=== PATIENT | female | born 1980 | race Caucasian/White ===

== ENCOUNTER 2021-05-01 09:21 | Inpatient (IN) ==
[2021-05-01] MEDS ORDERED: Isovue-370 500 ML BOTTLE IVP ONE (10:19)
[2021-05-01] MEDS ORDERED: Cefepime HCl 2,000 MG in D5% in Water (Mini-Bag+) 100 ML IVPB STA (10:20)
[2021-05-01 10:58] LABS: Hematocrit 32.5 % (35.3-44.9); Hemoglobin 10.5 g/dL (11.5-15.4); Mean Corpuscular HGB Conc 32.3 g/dL (31.6-35.5); Mean Corpuscular Hemoglobin 28.8 pg (28.0-33.3); Mean Corpuscular Volume 89.3 fL (83.0-100.0); Mean Platelet Volume 9.2 fL (9.4-12.4); Platelet Count 206 K/mcL (140-400); Red Blood Count 3.64 M/mcL (3.82-4.97); Red Cell Distribution Width 13.5 % (11.5-14.5); White Blood Count 4.6 K/mcL (4.3-11.1)
[2021-05-01] MEDS ORDERED: Vancomycin 1,500 MG/265 ML IV.SOLN IVPB ONE (11:00)
[2021-05-01 11:07] LABS: Bilirubin,Urine Negative (Negative); Blood,Urine Negative (Negative); Clarity,Urine Clear (Clear); Color,Urine Light-Yellow (Yellow); Glucose,Urine (UA) Normal (Normal); Ketones,Urine Negative (Negative); Leukocyte Esterase,Urine Negative (Negative); Nitrite,Urine Negative (Negative); Protein,Urine Negative (Neg-Trace); Specific Gravity,Urine 1.018 (1.010-1.025); Urobilinogen,Urine Normal (Normal)
[2021-05-01 11:15] LABS: BUN/Creatinine Ratio 20 (6-26); Blood Urea Nitrogen 10 mg/dL (6-20); Calcium 8.7 mg/dL (8.6-10.3); Carbon Dioxide 26 mEq/L (23-29); Chloride 105 mEq/L (98-107); Glucose 93 mg/dL (70-105); Osmolality,Calculated 277 (280-300); Sodium 134 mEq/L (136-145); eGFR For African Americans > 60 (> 60); eGFR For Non-African Americans > 60 (> 60)
[2021-05-01] MEDS ORDERED: *HR* FentaNYL (PF) 100 MCG/2 ML VIAL IVP STA (12:49)
[2021-05-01] MEDS ORDERED: Ondansetron 4 MG/2 ML VIAL IVP ONE (12:50)
[2021-05-01] MEDS ORDERED: Naloxone 0.4 MG/ML INJ IVP PRN (13:17)
[2021-05-01] MEDS ORDERED: Acetaminophen 325 MG TABLET PO PRN (13:17)
[2021-05-01] MEDS ORDERED: Ondansetron 4 MG/2 ML VIAL IVP PRN (13:17)
[2021-05-01] MEDS ORDERED: *HR* OxyCODONE Immed Rel 5 MG TABLET PO PRN ×2 (13:20→13:21)
[2021-05-01] MEDS: *HR* OxyCODONE Immed Rel 5 MG TABLET PO PRN ×2 (16:53→21:02)
[2021-05-01] MEDS: Cefepime HCl 2,000 MG in 0.9 % Sodium Chloride Mini Bag 100 ML IVPB SCH (19:40)
[2021-05-01] MEDS: Vancomycin 1,500 MG/265 ML IV.SOLN IVPB SCH (23:20)
[2021-05-02 00:54] LABS: Hematocrit 33.2 % (35.3-44.9); Hemoglobin 10.4 g/dL (11.5-15.4); Mean Corpuscular HGB Conc 31.3 g/dL (31.6-35.5); Mean Corpuscular Volume 92.5 fL (83.0-100.0); Mean Platelet Volume 9.6 fL (9.4-12.4); Platelet Count 216 K/mcL (140-400); Red Blood Count 3.59 M/mcL (3.82-4.97); Red Cell Distribution Width 13.8 % (11.5-14.5)
[2021-05-02 01:00] LABS: White Blood Count 7.2 K/mcL (4.3-11.1)
[2021-05-02 01:12] LABS: BUN/Creatinine Ratio 15 (6-26); Blood Urea Nitrogen 11 mg/dL (6-20); Calcium 8.5 mg/dL (8.6-10.3); Carbon Dioxide 23 mEq/L (23-29); Chloride 103 mEq/L (98-107); Glucose 108 mg/dL (70-105); Osmolality,Calculated 274 (280-300); Potassium 4.2 mEq/L (3.5-5.1); Sodium 132 mEq/L (136-145); eGFR For African Americans > 60 (> 60); eGFR For Non-African Americans > 60 (> 60)
[2021-05-02] MEDS: *HR* OxyCODONE Immed Rel 5 MG TABLET PO PRN ×2 (02:41→22:51)
[2021-05-02] MEDS: Cefepime HCl 2,000 MG in 0.9 % Sodium Chloride Mini Bag 100 ML IVPB SCH ×2 (03:46→13:20)
[2021-05-02] MEDS: *HR* Enoxaparin 40 MG/0.4 ML SYRINGE SQ SCH (05:59)
[2021-05-02] MEDS ORDERED: *HR* FentaNYL (PF) 100 MCG/2 ML VIAL IVP PRN (07:15)
[2021-05-02] MEDS ORDERED: Bupivacaine/EPI 1:200k 0.25% 50 ML VIAL ONE (07:30)
[2021-05-02] MEDS ORDERED: Ipratropium/Albuterol Neb 3 ML IH ONE (07:37)
[2021-05-02] MEDS ORDERED: Acetaminophen IV 1,000 MG/100 ML BAG IVPB ONE (07:38)
[2021-05-02] MEDS ORDERED: Lidocaine/EPI 1:100k 1% 30 ML VIAL ONE (07:40)
[2021-05-02] MEDS ORDERED: *HR* Propofol 200 MG/20 ML VIAL IVP ONE ×2 (07:42→07:43)
[2021-05-02] MEDS ORDERED: *HR* FentaNYL (PF) 100 MCG/2 ML VIAL ONE ×2 (07:43→08:12)
[2021-05-02] MEDS ORDERED: *HR* Midazolam HCl 2 MG/2 ML VIAL ONE (07:43)
[2021-05-02] MEDS ORDERED: dexmedeTOMIDine in 0.9 % NaCL 80 MCG/20 ML MLS ONE (07:50)
[2021-05-02] MEDS: Ringers Solution, Lactated 1,000 ML IVC SCH (07:54)
[2021-05-02] MEDS ORDERED: Ondansetron 4 MG/2 ML VIAL ONE ×2 (08:30→09:04)
[2021-05-02] MEDS ORDERED: Ketorolac 30 MG/ML VIAL IVP ONE (09:43)
[2021-05-02] MEDS: *HR* HYDROmorphone PF 0.5 MG/0.5 ML SYRINGE IVP PRN ×4 (09:43→10:16)
[2021-05-02] MEDS: Vancomycin 1,500 MG/265 ML IV.SOLN IVPB SCH (13:21)
[2021-05-02] MEDS: *HR* OxyCODONE Immed Rel 15 MG TABLET PO PRN ×2 (13:37→18:42)
[2021-05-03 00:41] VITALS: O2SAT 98
[2021-05-03] MEDS: Vancomycin 1,500 MG/265 ML IV.SOLN IVPB SCH (01:52)
[2021-05-03] MEDS: *HR* Enoxaparin 40 MG/0.4 ML SYRINGE SQ SCH (05:59)
[2021-05-03] MEDS: *HR* OxyCODONE Immed Rel 5 MG TABLET PO PRN (05:59)
[2021-05-03] MEDS: Ringers Solution, Lactated 1,000 ML IVC SCH (07:13)
[2021-05-03 07:45] VITALS: BP 124/62; PULSE 69; TEMP 98.1
== END 2021-05-03 10:56 | disposition home or self-care (01) | DRG 364 ==
LOC: EMEROOARM 09:21 → 3BNU 09:21 → SUATTDRO 13:41 → 3BNU 15:15
PROVIDERS: ADMIT Internal Medicine; ATTEND Internal Medicine

== ENCOUNTER 2022-02-01 11:58 | Inpatient (IN) ==
[2022-02-01] MEDS ORDERED: Iopamidol - 370 500 ML MLS IVP ONE (13:00)
[2022-02-01 13:50] LABS: Basophils % 0.2 %; Eosinophils % 0.8 %; Hemoglobin 9.9 g/dL (11.5-15.4); Immature Granulocytes % 0.6 % (0-4); Lymphocytes # 0.3 K/mcL (0.6-4.6); Lymphocytes % 6.6 %; Mean Corpuscular HGB Conc 34.1 g/dL (31.6-35.5); Mean Corpuscular Hemoglobin 28.5 pg (28.0-33.3); Mean Corpuscular Volume 83.6 fL (83.0-100.0); Monocytes # 0.3 K/mcL (0.0-1.3); Neutrophils # 4.3 K/mcL (1.6-8.9); Platelet Count 182 K/mcL (140-400); Red Blood Count 3.47 M/mcL (3.82-4.97); Red Cell Distribution Width 15.6 % (11.5-14.5); Segmented Neutrophils % 85.8 %
[2022-02-01 13:52] LABS: VBG PH 7.26 pH Units (7.32-7.42)
[2022-02-01 14:03] LABS: INR 1.3; Prothrombin Time 14.5 Seconds (9.4-12.1)
[2022-02-01 14:14] LABS: Alanine Aminotransferase 7 Units/L (7-52); Albumin 2.7 g/dL (3.5-5.7); Albumin/Globulin Ratio 0.6 (1.1-2.2); Alkaline Phosphatase 70 Units/L (34-104); Aspartate Amino Transferase 11 Units/L (13-39); BUN/Creatinine Ratio 17 (6-26); Bilirubin,Total 0.5 mg/dL (0.3-1.0); Blood Urea Nitrogen 105 mg/dL (6-20); Carbon Dioxide 15 mEq/L (23-29); Chloride 104 mEq/L (98-107); Creatine Kinase 38 Units/L (30-223); Globulin 4.4 g/dL (2.4-3.5); Glucose 99 mg/dL (70-105); Magnesium 1.7 mg/dL (1.6-2.6); Osmolality,Calculated 309 (280-300); Phosphorous 6.1 mg/dL (2.7-4.5); Potassium 3.1 mEq/L (3.5-5.1); Sodium 133 mEq/L (136-145); Total Protein 7.1 g/dL (6.4-8.9); Troponin I < 0.03 ng/mL (< 0.04); Uric Acid 12.6 mg/dL (2.3-7.6)
[2022-02-01] MEDS ORDERED: cefTRIAXone 1,000 MG in 0.9 % Sodium Chloride 10 ML IVP ONE (16:02)
[2022-02-01] MEDS ORDERED: 0.9 % Sodium Chloride 250 ML IVC PRN (16:06)
[2022-02-01] MEDS ORDERED: *HR* Heparin 5,000 UNIT/ML VIAL IVP ONE (16:19)
[2022-02-01] MEDS ORDERED: *HR* Heparin 10,000 UNIT/10 ML VIAL IV PRN (16:37)
[2022-02-01] MEDS ORDERED: 0.9 % Sodium Chloride 2,000 ML PRIME SCH (16:45)
[2022-02-01] MEDS ORDERED: Naloxone 0.4 MG/ML INJ IVP PRN (16:50)
[2022-02-01] MEDS ORDERED: Vancomycin 0 MG in 0.9 % Sodium Chloride 250 ML IVPB SCH (17:00)
[2022-02-01] MEDS ORDERED: Vancomycin 1,250 MG/262.5 ML IV.SOLN IVPB ONE (17:00)
[2022-02-01] MEDS ORDERED: Cefepime HCl 2,000 MG in 0.9 % Sodium Chloride Mini Bag 100 ML IVPB SCH (18:00)
[2022-02-01] MEDS: *HR* HYDROcodone/Acet 5/325 mg TABLET PO PRN (22:00)
[2022-02-01] MEDS: Heparin 25,000UNIT/250ML 1/2NS 25,000 UNIT/250 ML IV.SOLN IVC SCH (22:03)
[2022-02-01] MEDS: Cefepime HCl 2,000 MG in 0.9 % Sodium Chloride Mini Bag 100 ML IVPB SCH (22:08)
[2022-02-01] MEDS: Acetaminophen 325 MG TABLET PO PRN (22:44)
[2022-02-02 05:21] LABS: Basophils % 0.5 %; Eosinophils # 0.1 K/mcL (0.0-0.6); Eosinophils % 2.2 %; Hematocrit 25.2 % (35.3-44.9); Hemoglobin 8.6 g/dL (11.5-15.4); Immature Granulocytes % 1.2 % (0-4); Lymphocytes # 0.7 K/mcL (0.6-4.6); Lymphocytes % 17.9 %; Mean Corpuscular HGB Conc 34.1 g/dL (31.6-35.5); Mean Corpuscular Hemoglobin 28.5 pg (28.0-33.3); Mean Corpuscular Volume 83.4 fL (83.0-100.0); Monocytes # 0.5 K/mcL (0.0-1.3); Monocytes % 11.8 %; Neutrophils # 2.7 K/mcL (1.6-8.9); Platelet Count 164 K/mcL (140-400); Red Blood Count 3.02 M/mcL (3.82-4.97); Red Cell Distribution Width 15.7 % (11.5-14.5); Segmented Neutrophils % 66.4 %; White Blood Count 4.1 K/mcL (4.3-11.1)
[2022-02-02] MEDS: *HR* Heparin 5,000 UNIT/ML VIAL IVP PRN ×2 (06:13→12:43)
[2022-02-02] MEDS: *HR* HYDROcodone/Acet 5/325 mg TABLET PO PRN (09:46)
[2022-02-02] MEDS: Cefepime HCl 2,000 MG in 0.9 % Sodium Chloride Mini Bag 100 ML IVPB SCH (10:05)
[2022-02-02] MEDS: Cefepime HCl 2,000 MG in 0.9 % Sodium Chloride 10 ML IVP SCH ×2 (10:09→22:24)
[2022-02-02] MEDS: *HR* OxyCODONE Immed Rel 5 MG TABLET PO PRN ×2 (12:14→19:44)
[2022-02-02] MEDS: Heparin 25,000UNIT/250ML 1/2NS 25,000 UNIT/250 ML IV.SOLN IVC SCH (15:55)
[2022-02-02 16:11] LABS: Source,Synovial Fluid Left Knee
[2022-02-02 18:49] LABS: Source,Synovial Fluid Sternoclavicular Joi
[2022-02-02 18:52] LABS: A.calcoaceticus-baumannii cplx Not Detected (Not Detect); Bacteroides fragilis by PCR Not Detected (Not Detect); Candida albicans by PCR Not Detected (Not Detect); Candida auris by PCR Not Detected (Not Detect); Candida glabrata by PCR Not Detected (Not Detect); Candida krusei by PCR Not Detected (Not Detect); Candida parapsilosis by PCR Not Detected (Not Detect); Candida tropicalis by PCR Not Detected (Not Detect); Crypto. neoformans/gattii PCR Not Detected (Not Detect); Enterobacter cloacae Cmplx PCR Not Detected (Not Detect); Enterobacterales by PCR Not Detected (Not Detect); Enterococcus faecalis by PCR Not Detected (Not Detect); Enterococcus faecium by PCR Not Detected (Not Detect); Escherichia coli by PCR Not Detected (Not Detect); Klebs. pneumoniae group by PCR Not Detected (Not Detect); Klebsiella aerogenes by PCR Not Detected (Not Detect); Klebsiella oxytoca by PCR Not Detected (Not Detect); Proteus by PCR Not Detected (Not Detect); Pseudomonas aeruginosa by PCR Not Detected (Not Detect); Salmonella species by PCR Not Detected (Not Detect); Serratia marcescens by PCR Not Detected (Not Detect); Staph epidermidis by PCR Not Detected (Not Detect); Staph lugdunensis by PCR Not Detected (Not Detect); Staphylococcus aureus by PCR DETECTED (Not Detect); Stenotrophomonas maltophilia Not Detected (Not Detect); Streptococcus agalactiae(B)PCR Not Detected (Not Detect); Streptococcus by PCR Not Detected (Not Detect); Streptococcus pneumoniae PCR Not Detected (Not Detect); Streptococcus pyogenes (A) PCR Not Detected (Not Detect); mecA/C & MREJ (MRSA) Gene Not Detected (Not Detect)
[2022-02-02 22:16] LABS: Appearance,Synovial Fluid Hazy (Clear-Hazy); Color,Synovial Fluid Straw (Straw)
[2022-02-02 22:16] LABS: Appearance,Synovial Fluid Hazy (Clear-Hazy); Color,Synovial Fluid Straw (Straw)
[2022-02-02] MEDS: Acetaminophen 325 MG TABLET PO PRN (23:38)
[2022-02-03] MEDS: *HR* Heparin 5,000 UNIT/ML VIAL IVP PRN ×2 (00:53→16:04)
[2022-02-03 02:50] LABS: Basophils % 0.6 %; Eosinophils # 0.1 K/mcL (0.0-0.6); Eosinophils % 1.7 %; Hematocrit 25.7 % (35.3-44.9); Hemoglobin 8.5 g/dL (11.5-15.4); Immature Granulocytes % 1.1 % (0-4); Lymphocytes # 0.8 K/mcL (0.6-4.6); Lymphocytes % 21.6 %; Mean Corpuscular HGB Conc 33.1 g/dL (31.6-35.5); Mean Corpuscular Volume 84.5 fL (83.0-100.0); Mean Platelet Volume 9.4 fL (9.4-12.4); Monocytes # 0.4 K/mcL (0.0-1.3); Monocytes % 11.4 %; Neutrophils # 2.3 K/mcL (1.6-8.9); Platelet Count 147 K/mcL (140-400); Red Blood Count 3.04 M/mcL (3.82-4.97); Red Cell Distribution Width 15.9 % (11.5-14.5); Segmented Neutrophils % 63.6 %; White Blood Count 3.6 K/mcL (4.3-11.1)
[2022-02-03] MEDS: *HR* OxyCODONE Immed Rel 5 MG TABLET PO PRN ×3 (02:55→21:51)
[2022-02-03 03:06] LABS: Albumin 2.2 g/dL (3.5-5.7); Albumin/Globulin Ratio 0.5 (1.1-2.2); Bilirubin,Total 0.4 mg/dL (0.3-1.0); Globulin 4.2 g/dL (2.4-3.5); Magnesium 1.4 mg/dL (1.6-2.6); Phosphorous 3.9 mg/dL (2.7-4.5); Potassium 3.2 mEq/L (3.5-5.1); Total Protein 6.4 g/dL (6.4-8.9)
[2022-02-03 03:54] LABS: Bacteria,Urine Few per hpf (None-Few); Bilirubin,Urine Negative (Negative); Blood,Urine Large (Negative); Clarity,Urine Turbid (Clear); Color,Urine Light-Yellow (Yellow); Glucose,Urine (UA) Normal (Normal); Ketones,Urine Negative (Negative); Leukocyte Esterase,Urine Large (Negative); Mucus,Urine Few per lpf (None-Few); Nitrite,Urine Negative (Negative); Protein,Urine 70 mg/dL (Neg-Trace); RBC,Urine TNTC per hpf (0-3); Specific Gravity,Urine 1.015 (1.010-1.025); Squamous Epithelial Cell,Urine Few per hpf (None-Few); Urobilinogen,Urine Normal (Normal); WBC,Urine 30-50 per hpf (0-3)
[2022-02-03 03:55] LABS: Amphetamine Screen,Urine Negative ng/mL (Cutoff=1000); Barbiturate Screen,Urine Negative ng/mL (Cutoff=200); Benzodiazepines Screen,Urine Negative ng/mL (Cutoff=200); Cannabinoid Screen,Urine Negative ng/mL (Cutoff = 50); Cocaine Screen,Urine Negative ng/mL (Cutoff= 300); Opiate Screen,Urine Positive ng/mL (Cutoff=300); Phencyclidine Screen,Urine Negative ng/mL (Cutoff=25)
[2022-02-03] MEDS: Heparin 25,000UNIT/250ML 1/2NS 25,000 UNIT/250 ML IV.SOLN IVC SCH ×2 (05:46→16:07)
[2022-02-03] MEDS: Cefepime HCl 2,000 MG in 0.9 % Sodium Chloride 10 ML IVP SCH (09:41)
[2022-02-03] MEDS: Sodium Bicarbonate 150 MEQ in Water for inj. (sterile) 1,000 ML IVC SCH (11:58)
[2022-02-03] MEDS: *HR* HYDROcodone/Acet 5/325 mg TABLET PO PRN (18:52)
[2022-02-03] MEDS ORDERED: Ondansetron 4 MG/2 ML VIAL IVP PRN (21:48)
[2022-02-04] MEDS: Sodium Bicarbonate 150 MEQ in Water for inj. (sterile) 1,000 ML IVC SCH ×2 (02:11→12:48)
[2022-02-04] MEDS: Heparin 25,000UNIT/250ML 1/2NS 25,000 UNIT/250 ML IV.SOLN IVC SCH ×3 (04:29→22:20)
[2022-02-04 04:41] LABS: Hematocrit 25.5 % (35.3-44.9); Hemoglobin 8.3 g/dL (11.5-15.4); Mean Corpuscular HGB Conc 32.5 g/dL (31.6-35.5); Mean Corpuscular Volume 86.1 fL (83.0-100.0); Mean Platelet Volume 8.8 fL (9.4-12.4); Platelet Count 136 K/mcL (140-400); Red Blood Count 2.96 M/mcL (3.82-4.97); White Blood Count 4.4 K/mcL (4.3-11.1)
[2022-02-04 05:01] LABS: Albumin 2.3 g/dL (3.5-5.7); Albumin/Globulin Ratio 0.5 (1.1-2.2); Bilirubin,Total 0.4 mg/dL (0.3-1.0); Calcium 8.2 mg/dL (8.6-10.3); Globulin 4.4 g/dL (2.4-3.5); Magnesium 1.3 mg/dL (1.6-2.6); Phosphorous 3.9 mg/dL (2.7-4.5); Potassium 3.3 mEq/L (3.5-5.1); Total Protein 6.7 g/dL (6.4-8.9)
[2022-02-04] MEDS: *HR* Heparin 5,000 UNIT/ML VIAL IVP PRN ×2 (07:35→14:21)
[2022-02-04] MEDS ORDERED: Cefepime HCl 2,000 MG in 0.9 % Sodium Chloride 10 ML IVP SCH (09:00)
[2022-02-04 14:56] LABS: Total Volume 24 Hour,Urine 2.15 Liters (0.60-1.60)
[2022-02-04] MEDS ORDERED: ceFAZolin 2,000 MG in 0.9 % Sodium Chloride 100 ML IVPB ONE (14:57)
[2022-02-04] MEDS: rifAMPin 150 MG CAPSULE PO SCH (16:07)
[2022-02-04] MEDS: CeFAZolin 2,000 MG/120 ML BAG IVPB SCH (19:19)
[2022-02-04] MEDS: *HR* HYDROcodone/Acet 5/325 mg TABLET PO PRN (20:23)
[2022-02-04] MEDS: *HR* OxyCODONE Immed Rel 5 MG TABLET PO PRN (23:53)
[2022-02-05 03:59] LABS: Basophils % 0.3 %; Eosinophils # 0.1 K/mcL (0.0-0.6); Eosinophils % 1.7 %; Hematocrit 26.6 % (35.3-44.9); Hemoglobin 8.4 g/dL (11.5-15.4); Immature Granulocytes % 1.7 % (0-4); Lymphocytes # 0.8 K/mcL (0.6-4.6); Lymphocytes % 13.3 %; Mean Corpuscular HGB Conc 31.6 g/dL (31.6-35.5); Mean Corpuscular Volume 88.7 fL (83.0-100.0); Mean Platelet Volume 9.2 fL (9.4-12.4); Monocytes # 0.3 K/mcL (0.0-1.3); Monocytes % 5.2 %; Neutrophils # 4.5 K/mcL (1.6-8.9); Platelet Count 171 K/mcL (140-400); Segmented Neutrophils % 77.8 %; White Blood Count 5.8 K/mcL (4.3-11.1)
[2022-02-05 04:42] LABS: Albumin 2.3 g/dL (3.5-5.7); Albumin/Globulin Ratio 0.5 (1.1-2.2); Bilirubin,Total 0.4 mg/dL (0.3-1.0); Calcium 8.4 mg/dL (8.6-10.3); Globulin 4.4 g/dL (2.4-3.5); Potassium 3.4 mEq/L (3.5-5.1); Total Protein 6.7 g/dL (6.4-8.9)
[2022-02-05] MEDS: CeFAZolin 2,000 MG/120 ML BAG IVPB SCH ×2 (05:39→18:17)
[2022-02-05] MEDS: Heparin 25,000UNIT/250ML 1/2NS 25,000 UNIT/250 ML IV.SOLN IVC SCH ×3 (08:37→21:43)
[2022-02-05] MEDS ORDERED: *HR* Propofol 500 MG/50 ML BOTTLE IVP ONE (08:50)
[2022-02-05] MEDS ORDERED: *HR* Propofol 200 MG/20 ML VIAL IVP ONE (08:50)
[2022-02-05] MEDS ORDERED: Lidocaine -MPF 2% 5 ML VIAL SQ ONE (08:50)
[2022-02-05] MEDS ORDERED: Lidocaine Viscous Oral Soln 15 ML SOLUTION MM PRN (09:05)
[2022-02-05] MEDS ORDERED: 0.9 % Sodium Chloride 500 ML IVC ONE (09:05)
[2022-02-05] MEDS: rifAMPin 150 MG CAPSULE PO SCH (10:07)
[2022-02-05] MEDS: *HR* HYDROcodone/Acet 5/325 mg TABLET PO PRN (20:07)
[2022-02-06 02:49] LABS: Hematocrit 26.2 % (35.3-44.9); Mean Corpuscular HGB Conc 30.5 g/dL (31.6-35.5); Mean Corpuscular Hemoglobin 28.2 pg (28.0-33.3); Mean Corpuscular Volume 92.3 fL (83.0-100.0); Mean Platelet Volume 9.2 fL (9.4-12.4); Platelet Count 174 K/mcL (140-400); Red Blood Count 2.84 M/mcL (3.82-4.97); Red Cell Distribution Width 15.9 % (11.5-14.5); White Blood Count 5.9 K/mcL (4.3-11.1)
[2022-02-06 03:09] LABS: Alanine Aminotransferase < 3 Units/L (7-52); Albumin 2.4 g/dL (3.5-5.7); Albumin/Globulin Ratio 0.5 (1.1-2.2); Alkaline Phosphatase 44 Units/L (34-104); Aspartate Amino Transferase 9 Units/L (13-39); BUN/Creatinine Ratio 21 (6-26); Bilirubin,Total 0.3 mg/dL (0.3-1.0); Blood Urea Nitrogen 43 mg/dL (6-20); Calcium 8.7 mg/dL (8.6-10.3); Carbon Dioxide 22 mEq/L (23-29); Chloride 106 mEq/L (98-107); Globulin 4.6 g/dL (2.4-3.5); Glucose 95 mg/dL (70-105); Magnesium 1.7 mg/dL (1.6-2.6); Osmolality,Calculated 301 (280-300); Phosphorous 4.6 mg/dL (2.7-4.5); Potassium 3.7 mEq/L (3.5-5.1); Sodium 140 mEq/L (136-145)
[2022-02-06] MEDS: *HR* HYDROcodone/Acet 5/325 mg TABLET PO PRN ×3 (04:08→17:56)
[2022-02-06] MEDS: CeFAZolin 2,000 MG/120 ML BAG IVPB SCH ×2 (05:36→17:56)
[2022-02-06] MEDS ORDERED: Lidocaine/EPI 1:200k 1% PF 10 ML VIAL ONE (07:10)
[2022-02-06] MEDS ORDERED: Ondansetron 4 MG/2 ML VIAL ONE (07:29)
[2022-02-06] MEDS ORDERED: Lidocaine -MPF 2% 5 ML VIAL ONE (07:29)
[2022-02-06] MEDS ORDERED: *HR* Succinylcholine 200 MG/10 ML VIAL IVP ONE (07:29)
[2022-02-06] MEDS ORDERED: *HR* FentaNYL (PF) 100 MCG/2 ML VIAL ONE (07:29)
[2022-02-06] MEDS ORDERED: *HR* Midazolam HCl 2 MG/2 ML VIAL ONE (07:29)
[2022-02-06] MEDS ORDERED: *HR* Propofol 200 MG/20 ML VIAL IVP ONE (07:29)
[2022-02-06] MEDS ORDERED: Ketamine HCL *QUVA* 50mg (1mL) SYRINGE ONE (07:29)
[2022-02-06] MEDS: 0.9 % Sodium Chloride 1,000 ML IVC SCH (08:02)
[2022-02-06] MEDS ORDERED: dexmedeTOMIDine in 0.9 % NaCL 80 MCG/20 ML MLS ONE (08:04)
[2022-02-06] MEDS ORDERED: *HR* HYDROMORPHONE 2 MG/ML VIAL ONE (08:40)
[2022-02-06] MEDS ORDERED: Albuterol 2.5 MG/3 ML NEBULIZER IH PRN (08:57)
[2022-02-06] MEDS ORDERED: Ondansetron 4 MG/2 ML VIAL IVP PRN (08:57)
[2022-02-06] MEDS ORDERED: *HR* OxyCODONE Immed Rel 5 MG TABLET PO PRN (08:57)
[2022-02-06] MEDS ORDERED: *HR* HYDROmorphone PF 0.5 MG/0.5 ML SYRINGE IVP PRN (08:57)
[2022-02-06] MEDS: *HR* FentaNYL (PF) 100 MCG/2 ML VIAL IVP PRN ×2 (09:51→10:13)
[2022-02-06] MEDS ORDERED: *HR* OxyCODONE Immed Rel 5 MG TABLET PO ONE ×2 (12:12→13:07)
[2022-02-06] MEDS: Heparin 25,000UNIT/250ML 1/2NS 25,000 UNIT/250 ML IV.SOLN IVC SCH (19:00)
[2022-02-06] MEDS ORDERED: QUEtiapine Fumarate 25 MG TABLET PO SCH (21:00)
[2022-02-06] MEDS: Melatonin 3 MG TABLET PO PRN (21:17)
[2022-02-06] MEDS: Morphine Sulfate 2 MG/ML SYRINGE IVP PRN (21:59)
[2022-02-07] MEDS: CeFAZolin 2,000 MG/120 ML BAG IVPB SCH ×3 (00:27→15:30)
[2022-02-07] MEDS: *HR* HYDROcodone/Acet 5/325 mg TABLET PO PRN ×4 (01:57→23:59)
[2022-02-07] MEDS: traZODone 50 MG TABLET PO PRN ×2 (02:48→21:02)
[2022-02-07] MEDS: Heparin 25,000UNIT/250ML 1/2NS 25,000 UNIT/250 ML IV.SOLN IVC SCH ×3 (02:58→21:53)
[2022-02-07 03:09] LABS: Hematocrit 23.3 % (35.3-44.9); Hemoglobin 7.1 g/dL (11.5-15.4); Mean Corpuscular HGB Conc 30.5 g/dL (31.6-35.5); Mean Corpuscular Hemoglobin 27.8 pg (28.0-33.3); Mean Corpuscular Volume 91.4 fL (83.0-100.0); Mean Platelet Volume 9.6 fL (9.4-12.4); Platelet Count 134 K/mcL (140-400); Red Blood Count 2.55 M/mcL (3.82-4.97); Red Cell Distribution Width 15.9 % (11.5-14.5); White Blood Count 4.9 K/mcL (4.3-11.1)
[2022-02-07 03:29] LABS: Calcium 7.7 mg/dL (8.6-10.3); Potassium 3.9 mEq/L (3.5-5.1)
[2022-02-07] MEDS: Morphine Sulfate 2 MG/ML SYRINGE IVP PRN ×3 (08:02→20:57)
[2022-02-07] MEDS ORDERED: Iopamidol - 370 500 ML MLS IVP ONE (10:24)
[2022-02-07] MEDS: Clotrimazole 1% CRM 15 GM TUBE TP SCH ×2 (11:06→20:57)
[2022-02-07] MEDS: Fluconazole 150 MG TABLET PO SCH (11:07)
[2022-02-07] MEDS: 0.9 % Sodium Chloride 1,000 ML IVC SCH (15:29)
[2022-02-07] MEDS: Melatonin 3 MG TABLET PO PRN (21:02)
[2022-02-08] MEDS: CeFAZolin 2,000 MG/120 ML BAG IVPB SCH ×3 (00:58→15:47)
[2022-02-08] MEDS: Morphine Sulfate 2 MG/ML SYRINGE IVP PRN ×2 (03:38→09:31)
[2022-02-08 05:14] LABS: Hematocrit 23.5 % (35.3-44.9); Hemoglobin 7.1 g/dL (11.5-15.4); Mean Corpuscular HGB Conc 30.2 g/dL (31.6-35.5); Mean Corpuscular Hemoglobin 28.3 pg (28.0-33.3); Mean Corpuscular Volume 93.6 fL (83.0-100.0); Mean Platelet Volume 9.8 fL (9.4-12.4); Platelet Count 153 K/mcL (140-400); Red Blood Count 2.51 M/mcL (3.82-4.97); Red Cell Distribution Width 15.4 % (11.5-14.5); White Blood Count 5.2 K/mcL (4.3-11.1)
[2022-02-08 05:29] LABS: Calcium 7.8 mg/dL (8.6-10.3); Potassium 4.3 mEq/L (3.5-5.1)
[2022-02-08] MEDS ORDERED: *HR* HYDROmorphone 2 MG/ML SYRINGE IVP ONE (06:32)
[2022-02-08] MEDS: Heparin 25,000UNIT/250ML 1/2NS 25,000 UNIT/250 ML IV.SOLN IVC SCH ×2 (07:06→18:06)
[2022-02-08] MEDS: Fluconazole 150 MG TABLET PO SCH (08:12)
[2022-02-08] MEDS: Clotrimazole 1% CRM 15 GM TUBE TP SCH ×2 (08:45→21:08)
[2022-02-08] MEDS: Gabapentin 100 MG CAPSULE PO SCH ×3 (10:53→21:07)
[2022-02-08] MEDS: 0.9 % Sodium Chloride 1,000 ML IVC SCH (11:16)
[2022-02-08] MEDS ORDERED: *HR* HYDROcodone/Acet 5/325 mg TABLET PO PRN (13:41)
[2022-02-08 13:51] LABS: A.calcoaceticus-baumannii cplx Not Detected (Not Detect); Bacteroides fragilis by PCR Not Detected (Not Detect); Candida albicans by PCR Not Detected (Not Detect); Candida auris by PCR Not Detected (Not Detect); Candida glabrata by PCR Not Detected (Not Detect); Candida krusei by PCR Not Detected (Not Detect); Candida parapsilosis by PCR Not Detected (Not Detect); Candida tropicalis by PCR Not Detected (Not Detect); Crypto. neoformans/gattii PCR Not Detected (Not Detect); Enterobacter cloacae Cmplx PCR Not Detected (Not Detect); Enterobacterales by PCR Not Detected (Not Detect); Enterococcus faecalis by PCR Not Detected (Not Detect); Enterococcus faecium by PCR Not Detected (Not Detect); Escherichia coli by PCR Not Detected (Not Detect); Klebs. pneumoniae group by PCR Not Detected (Not Detect); Klebsiella aerogenes by PCR Not Detected (Not Detect); Klebsiella oxytoca by PCR Not Detected (Not Detect); Proteus by PCR Not Detected (Not Detect); Pseudomonas aeruginosa by PCR Not Detected (Not Detect); Salmonella species by PCR Not Detected (Not Detect); Serratia marcescens by PCR Not Detected (Not Detect); Staph epidermidis by PCR Not Detected (Not Detect); Staph lugdunensis by PCR Not Detected (Not Detect); Staphylococcus aureus by PCR DETECTED (Not Detect); Stenotrophomonas maltophilia Not Detected (Not Detect); Streptococcus agalactiae(B)PCR Not Detected (Not Detect); Streptococcus by PCR Not Detected (Not Detect); Streptococcus pneumoniae PCR Not Detected (Not Detect); Streptococcus pyogenes (A) PCR Not Detected (Not Detect); mecA/C & MREJ (MRSA) Gene Not Detected (Not Detect)
[2022-02-08] MEDS ORDERED: ALPRAZolam 0.5 MG TABLET PO ONE (14:30)
[2022-02-08] MEDS ORDERED: QUEtiapine Fumarate 25 MG TABLET PO ONE (17:52)
[2022-02-08] MEDS: *HR* OxyCODONE/APAP 7.5/325 TABLET PO PRN (18:02)
[2022-02-08] MEDS: ALPRAZolam 0.5 MG TABLET PO PRN (18:02)
[2022-02-08] MEDS ORDERED: QUEtiapine Fumarate 25 MG TABLET PO SCH (21:00)
[2022-02-08] MEDS: QUEtiapine Fumarate 100 MG TABLET PO SCH (21:07)
[2022-02-08] MEDS: traZODone 50 MG TABLET PO PRN (21:08)
[2022-02-08] MEDS: Melatonin 3 MG TABLET PO PRN (21:08)
[2022-02-08] MEDS: *HR* Heparin 5,000 UNIT/ML VIAL IVP PRN (22:28)
[2022-02-09] MEDS: CeFAZolin 2,000 MG/120 ML BAG IVPB SCH ×3 (00:41→15:59)
[2022-02-09] MEDS: ALPRAZolam 0.5 MG TABLET PO PRN ×4 (00:42→20:04)
[2022-02-09] MEDS: *HR* OxyCODONE/APAP 7.5/325 TABLET PO PRN ×4 (00:42→20:01)
[2022-02-09] MEDS: Heparin 25,000UNIT/250ML 1/2NS 25,000 UNIT/250 ML IV.SOLN IVC SCH (03:55)
[2022-02-09 06:04] LABS: Hematocrit 21.7 % (35.3-44.9); Hemoglobin 6.7 g/dL (11.5-15.4); Mean Corpuscular HGB Conc 30.9 g/dL (31.6-35.5); Mean Corpuscular Hemoglobin 28.4 pg (28.0-33.3); Mean Corpuscular Volume 91.9 fL (83.0-100.0); Mean Platelet Volume 9.8 fL (9.4-12.4); Platelet Count 132 K/mcL (140-400); Red Blood Count 2.36 M/mcL (3.82-4.97); Red Cell Distribution Width 14.9 % (11.5-14.5); White Blood Count 3.7 K/mcL (4.3-11.1)
[2022-02-09 06:23] LABS: Calcium 8.2 mg/dL (8.6-10.3)
[2022-02-09 06:34] LABS: Alanine Aminotransferase < 3 Units/L (7-52); Albumin 2.4 g/dL (3.5-5.7); Albumin/Globulin Ratio 0.6 (1.1-2.2); Alkaline Phosphatase 39 Units/L (34-104); Aspartate Amino Transferase 6 Units/L (13-39); Bilirubin,Indirect 0.3 mg/dL (0.0-1.0); Bilirubin,Total 0.3 mg/dL (0.3-1.0); Globulin 4.2 g/dL (2.4-3.5); Magnesium 1.1 mg/dL (1.6-2.6); Total Protein 6.6 g/dL (6.4-8.9)
[2022-02-09] MEDS: Gabapentin 100 MG CAPSULE PO SCH (10:37)
[2022-02-09] MEDS: QUEtiapine Fumarate 100 MG TABLET PO SCH ×2 (10:37→20:08)
[2022-02-09] MEDS: Clotrimazole 1% CRM 15 GM TUBE TP SCH ×2 (10:45→20:07)
[2022-02-09] MEDS ORDERED: 0.9 % Sodium Chloride 250 ML IVC SCH (11:00)
[2022-02-09] MEDS ORDERED: Sennosides/Docusate Sodium TABLET PO SCH (11:00)
[2022-02-09] MEDS ORDERED: Ketamine HCL *QUVA* 50mg (1mL) SYRINGE ONE (14:25)
[2022-02-09] MEDS ORDERED: *HR* FentaNYL (PF) 100 MCG/2 ML VIAL ONE (14:26)
[2022-02-09] MEDS ORDERED: Ondansetron 4 MG/2 ML VIAL ONE (14:26)
[2022-02-09] MEDS ORDERED: Lidocaine -MPF 2% 5 ML VIAL ONE (14:26)
[2022-02-09] MEDS ORDERED: *HR* Rocuronium Bromide 50 MG/5 ML VIAL ONE ×2 (14:26→15:46)
[2022-02-09] MEDS ORDERED: Lidocaine HCL 4 ML Topical Solution (Laryng-O-Jet Kit Sterile Pak) TP ONE (14:26)
[2022-02-09] MEDS ORDERED: *HR* Midazolam HCl 5 MG/5 ML VIAL IVP ONE (14:26)
[2022-02-09] MEDS ORDERED: *HR* Propofol 200 MG/20 ML VIAL IVP ONE (14:26)
[2022-02-09] MEDS ORDERED: Dexmedetomidine HCl 400 MCG/100 ML MLS IVC ONE (14:33)
[2022-02-09] MEDS ORDERED: *HR* HYDROMORPHONE 2 MG/ML VIAL ONE (15:22)
[2022-02-09] MEDS ORDERED: Promethazine 6.25 MG in Water for inj. (sterile) 20 ML IVPB PRN ×2 (15:55→19:10)
[2022-02-09] MEDS ORDERED: *HR* HYDROmorphone (PF) 1 MG/ML SYRINGE IVP PRN (15:55)
[2022-02-09] MEDS ORDERED: Acetaminophen IV 1,000 MG/100 ML BAG IVPB ONE (15:55)
[2022-02-09] MEDS ORDERED: *HR* OxyCODONE Immed Rel 5 MG TABLET PO PRN (15:55)
[2022-02-09] MEDS ORDERED: *HR* Labetalol 20 MG/4 ML SYRINGE IVP PRN (15:55)
[2022-02-09] MEDS ORDERED: *HR* HYDROmorphone 2 MG TABLET PO PRN (15:55)
[2022-02-09] MEDS ORDERED: Famotidine 20 MG/2 ML VIAL IVP ONE ×2 (15:55→19:10)
[2022-02-09] MEDS ORDERED: Ondansetron 4 MG/2 ML VIAL IVP PRN ×2 (15:55→19:10)
[2022-02-09] MEDS ORDERED: Sugammadex Sodium 200 MG/2 ML VIAL IV ONE (16:25)
[2022-02-09] MEDS ORDERED: Naloxone 0.4 MG/ML INJ IVP PRN (19:10)
[2022-02-09] MEDS: Gabapentin 300 MG CAPSULE PO SCH (20:02)
[2022-02-09] MEDS: Sennosides/Docusate Sodium TABLET PO SCH (20:02)
[2022-02-09] MEDS: 0.9 % Sodium Chloride 1,000 ML IVC SCH (20:07)
[2022-02-10] MEDS: CeFAZolin 2,000 MG/120 ML BAG IVPB SCH ×4 (02:07→23:26)
[2022-02-10] MEDS: *HR* OxyCODONE/APAP 7.5/325 TABLET PO PRN ×2 (05:07→13:00)
[2022-02-10] MEDS: QUEtiapine Fumarate 100 MG TABLET PO SCH ×2 (07:50→20:13)
[2022-02-10] MEDS: Gabapentin 300 MG CAPSULE PO SCH ×3 (07:50→20:13)
[2022-02-10] MEDS: Sennosides/Docusate Sodium TABLET PO SCH ×2 (07:50→20:14)
[2022-02-10] MEDS: Clotrimazole 1% CRM 15 GM TUBE TP SCH ×2 (08:03→20:14)
[2022-02-10] MEDS: ALPRAZolam 0.5 MG TABLET PO PRN ×3 (08:12→23:26)
[2022-02-10 10:55] LABS: Hematocrit 22.6 % (35.3-44.9); Mean Corpuscular Hemoglobin 28.6 pg (28.0-33.3); Mean Corpuscular Volume 92.2 fL (83.0-100.0); Mean Platelet Volume 10.1 fL (9.4-12.4); Platelet Count 173 K/mcL (140-400); Red Blood Count 2.45 M/mcL (3.82-4.97); Red Cell Distribution Width 15.3 % (11.5-14.5)
[2022-02-10 10:56] LABS: White Blood Count 6.5 K/mcL (4.3-11.1)
[2022-02-10 11:14] LABS: Calcium 7.8 mg/dL (8.6-10.3); Potassium 4.6 mEq/L (3.5-5.1)
[2022-02-10] MEDS ORDERED: Acetaminophen IV 1,000 MG/100 ML BAG IVPB ONE (14:15)
[2022-02-10] MEDS: 0.9 % Sodium Chloride 1,000 ML IVC SCH (15:06)
[2022-02-10] MEDS: *HR* OxyCODONE/APAP 7.5/325 TABLET PO SCH ×2 (18:44→23:25)
[2022-02-10 19:06] LABS: Candida DNA Not Detected (Not Detect); Gardnerella DNA Not Detected (Not Detect); Trichomonas DNA DETECTED (Not Detect)
[2022-02-10] MEDS: Melatonin 3 MG TABLET PO PRN (20:13)
[2022-02-11] MEDS: 0.9 % Sodium Chloride 1,000 ML IVC SCH (03:54)
[2022-02-11] MEDS ORDERED: Morphine Sulfate 2 MG/ML SYRINGE IVP ONE (04:40)
[2022-02-11 05:51] LABS: Hematocrit 25.5 % (35.3-44.9); Hemoglobin 7.5 g/dL (11.5-15.4); Mean Corpuscular HGB Conc 29.4 g/dL (31.6-35.5); Mean Corpuscular Hemoglobin 28.3 pg (28.0-33.3); Mean Corpuscular Volume 96.2 fL (83.0-100.0); Mean Platelet Volume 10.2 fL (9.4-12.4); Platelet Count 198 K/mcL (140-400); Red Blood Count 2.65 M/mcL (3.82-4.97); Red Cell Distribution Width 15.6 % (11.5-14.5); White Blood Count 6.7 K/mcL (4.3-11.1)
[2022-02-11] MEDS: ALPRAZolam 0.5 MG TABLET PO PRN ×3 (06:00→21:59)
[2022-02-11] MEDS: *HR* OxyCODONE/APAP 7.5/325 TABLET PO SCH (06:00)
[2022-02-11 06:09] LABS: Calcium 7.6 mg/dL (8.6-10.3); Potassium 4.8 mEq/L (3.5-5.1)
[2022-02-11] MEDS: Gabapentin 300 MG CAPSULE PO SCH ×3 (07:58→20:17)
[2022-02-11] MEDS: QUEtiapine Fumarate 100 MG TABLET PO SCH ×2 (07:58→20:17)
[2022-02-11] MEDS: Sennosides/Docusate Sodium TABLET PO SCH ×2 (07:58→20:18)
[2022-02-11] MEDS: Clotrimazole 1% CRM 15 GM TUBE TP SCH ×2 (07:59→20:19)
[2022-02-11] MEDS: CeFAZolin 2,000 MG/120 ML BAG IVPB SCH ×3 (07:59→23:55)
[2022-02-11] MEDS: metroNIDAZOLE 500 MG TABLET PO SCH ×2 (09:42→20:17)
[2022-02-11] MEDS: *HR* OxyCODONE/APAP 10/325 TABLET PO SCH ×3 (12:05→23:53)
[2022-02-11] MEDS: *HR* OxyCODONE/APAP 5/325 TABLET PO PRN ×2 (15:30→21:59)
[2022-02-11] MEDS ORDERED: ALPRAZolam 0.5 MG TABLET PO ONE (16:01)
[2022-02-12] MEDS: *HR* OxyCODONE/APAP 10/325 TABLET PO SCH ×4 (05:41→23:57)
[2022-02-12] MEDS: ALPRAZolam 0.5 MG TABLET PO PRN (05:41)
[2022-02-12 06:04] LABS: Calcium 7.8 mg/dL (8.6-10.3); Magnesium 1.2 mg/dL (1.6-2.6); Phosphorous 2.5 mg/dL (2.7-4.5); Potassium 5.5 mEq/L (3.5-5.1)
[2022-02-12 06:37] LABS: Basophils % 0.6 %; Eosinophils # 0.2 K/mcL (0.0-0.6); Eosinophils % 2.7 %; Hemoglobin 7.2 g/dL (11.5-15.4); Immature Granulocytes % 0.9 % (0-4); Lymphocytes # 1.5 K/mcL (0.6-4.6); Lymphocytes % 22.3 %; Mean Corpuscular Hemoglobin 28.8 pg (28.0-33.3); Mean Platelet Volume 10.2 fL (9.4-12.4); Monocytes # 0.6 K/mcL (0.0-1.3); Monocytes % 8.4 %; Neutrophils # 4.3 K/mcL (1.6-8.9); Platelet Count 233 K/mcL (140-400); Red Cell Distribution Width 15.4 % (11.5-14.5); Segmented Neutrophils % 65.1 %; White Blood Count 6.6 K/mcL (4.3-11.1)
[2022-02-12] MEDS ORDERED: 0.9 % Sodium Chloride 1,000 ML IVC SCH (07:30)
[2022-02-12] MEDS: metroNIDAZOLE 500 MG TABLET PO SCH ×2 (07:54→21:11)
[2022-02-12] MEDS: QUEtiapine Fumarate 100 MG TABLET PO SCH ×2 (07:54→21:10)
[2022-02-12] MEDS: Sennosides/Docusate Sodium TABLET PO SCH ×2 (07:55→21:11)
[2022-02-12] MEDS: Gabapentin 300 MG CAPSULE PO SCH ×3 (07:55→21:11)
[2022-02-12] MEDS: CeFAZolin 2,000 MG/120 ML BAG IVPB SCH ×3 (08:02→23:59)
[2022-02-12] MEDS: Clotrimazole 1% CRM 15 GM TUBE TP SCH ×2 (08:02→21:10)
[2022-02-12] MEDS: *HR* LORazepam 2 MG/ML VIAL IVP PRN ×2 (11:04→21:11)
[2022-02-12] MEDS: *HR* OxyCODONE/APAP 5/325 TABLET PO PRN (15:13)
[2022-02-12] MEDS: Acetaminophen 325 MG TABLET PO PRN (15:40)
[2022-02-12] MEDS: Melatonin 3 MG TABLET PO PRN (21:10)
[2022-02-13] MEDS: *HR* OxyCODONE/APAP 5/325 TABLET PO PRN ×4 (02:17→20:40)
[2022-02-13] MEDS: *HR* OxyCODONE/APAP 10/325 TABLET PO SCH ×4 (05:25→23:41)
[2022-02-13] MEDS: *HR* LORazepam 2 MG/ML VIAL IVP PRN ×3 (05:25→21:12)
[2022-02-13] MEDS: Sennosides/Docusate Sodium TABLET PO SCH ×2 (07:55→20:40)
[2022-02-13] MEDS: QUEtiapine Fumarate 100 MG TABLET PO SCH ×2 (07:55→20:40)
[2022-02-13] MEDS: metroNIDAZOLE 500 MG TABLET PO SCH ×2 (07:55→20:40)
[2022-02-13] MEDS: Gabapentin 300 MG CAPSULE PO SCH ×3 (07:56→20:40)
[2022-02-13] MEDS: Clotrimazole 1% CRM 15 GM TUBE TP SCH ×2 (07:56→20:41)
[2022-02-13] MEDS: CeFAZolin 2,000 MG/120 ML BAG IVPB SCH ×3 (08:01→23:41)
[2022-02-13 18:18] LABS: Hematocrit 23.1 % (35.3-44.9); Hemoglobin 6.7 g/dL (11.5-15.4)
[2022-02-13 18:31] LABS: Calcium 7.9 mg/dL (8.6-10.3); Magnesium 1.2 mg/dL (1.6-2.6); Phosphorous 2.9 mg/dL (2.7-4.5); Potassium 5.3 mEq/L (3.5-5.1)
[2022-02-13] MEDS: Melatonin 3 MG TABLET PO PRN (20:40)
[2022-02-14] MEDS: *HR* LORazepam 2 MG/ML VIAL IVP PRN ×3 (05:36→22:56)
[2022-02-14] MEDS: *HR* OxyCODONE/APAP 10/325 TABLET PO SCH ×4 (05:36→22:59)
[2022-02-14] MEDS ORDERED: 0.9 % Sodium Chloride 250 ML IVC SCH (07:15)
[2022-02-14] MEDS: *HR* OxyCODONE/APAP 5/325 TABLET PO PRN ×3 (08:07→21:47)
[2022-02-14] MEDS: Gabapentin 300 MG CAPSULE PO SCH ×3 (08:50→20:11)
[2022-02-14] MEDS: QUEtiapine Fumarate 100 MG TABLET PO SCH ×2 (08:50→20:11)
[2022-02-14] MEDS: metroNIDAZOLE 500 MG TABLET PO SCH ×2 (08:51→20:11)
[2022-02-14] MEDS: Sennosides/Docusate Sodium TABLET PO SCH ×2 (08:51→20:12)
[2022-02-14] MEDS: CeFAZolin 2,000 MG/120 ML BAG IVPB SCH ×3 (08:51→22:59)
[2022-02-14] MEDS: Clotrimazole 1% CRM 15 GM TUBE TP SCH ×2 (08:54→20:38)
[2022-02-14 09:32] LABS: Hematocrit 24.1 % (35.3-44.9)
[2022-02-14 09:45] LABS: Calcium 8.4 mg/dL (8.6-10.3); Magnesium 1.3 mg/dL (1.6-2.6); Phosphorous 4.1 mg/dL (2.7-4.5); Potassium 5.1 mEq/L (3.5-5.1)
[2022-02-14] MEDS: Acetaminophen 325 MG TABLET PO PRN (11:04)
[2022-02-14] MEDS ORDERED: *HR* LORazepam 2 MG/ML VIAL IVP ONE ×2 (17:12→17:23)
[2022-02-15] MEDS: *HR* OxyCODONE/APAP 10/325 TABLET PO SCH ×3 (05:23→18:09)
[2022-02-15 05:47] LABS: Hematocrit 21.6 % (35.3-44.9); Hemoglobin 6.3 g/dL (11.5-15.4)
[2022-02-15 06:07] LABS: Calcium 8.3 mg/dL (8.6-10.3); Magnesium 1.6 mg/dL (1.6-2.6); Phosphorous 5.2 mg/dL (2.7-4.5); Potassium 5.4 mEq/L (3.5-5.1)
[2022-02-15] MEDS: *HR* OxyCODONE/APAP 5/325 TABLET PO PRN ×3 (09:33→20:09)
[2022-02-15] MEDS: QUEtiapine Fumarate 100 MG TABLET PO SCH ×2 (09:33→20:11)
[2022-02-15] MEDS: CeFAZolin 2,000 MG/120 ML BAG IVPB SCH ×2 (09:33→14:22)
[2022-02-15] MEDS: metroNIDAZOLE 500 MG TABLET PO SCH ×2 (09:34→20:11)
[2022-02-15] MEDS: Gabapentin 300 MG CAPSULE PO SCH ×3 (09:34→20:09)
[2022-02-15] MEDS: *HR* LORazepam 2 MG/ML VIAL IVP PRN ×2 (09:34→20:13)
[2022-02-15] MEDS: Sennosides/Docusate Sodium TABLET PO SCH ×2 (09:34→20:09)
[2022-02-15] MEDS: Clotrimazole 1% CRM 15 GM TUBE TP SCH ×2 (09:35→20:11)
[2022-02-15] MEDS: Melatonin 3 MG TABLET PO PRN (20:11)
[2022-02-15 20:24] LABS: Hemoglobin 7.6 g/dL (11.5-15.4)
[2022-02-16] MEDS: *HR* OxyCODONE/APAP 10/325 TABLET PO SCH ×4 (00:04→18:35)
[2022-02-16] MEDS: CeFAZolin 2,000 MG/120 ML BAG IVPB SCH ×3 (00:04→16:29)
[2022-02-16] MEDS: *HR* OxyCODONE/APAP 5/325 TABLET PO PRN ×3 (02:08→15:09)
[2022-02-16 04:41] LABS: Basophils % 1.1 %; Eosinophils # 0.3 K/mcL (0.0-0.6); Eosinophils % 7.3 %; Hematocrit 23.8 % (35.3-44.9); Immature Granulocytes % 0.8 % (0-4); Lymphocytes # 1.1 K/mcL (0.6-4.6); Lymphocytes % 29.9 %; Mean Corpuscular HGB Conc 29.4 g/dL (31.6-35.5); Mean Corpuscular Volume 95.2 fL (83.0-100.0); Mean Platelet Volume 9.4 fL (9.4-12.4); Monocytes # 0.5 K/mcL (0.0-1.3); Monocytes % 13.1 %; Neutrophils # 1.7 K/mcL (1.6-8.9); Platelet Count 255 K/mcL (140-400); Red Cell Distribution Width 14.6 % (11.5-14.5); Segmented Neutrophils % 47.8 %; White Blood Count 3.6 K/mcL (4.3-11.1)
[2022-02-16] MEDS: *HR* LORazepam 2 MG/ML VIAL IVP PRN ×3 (04:42→20:10)
[2022-02-16 04:58] LABS: Calcium 8.1 mg/dL (8.6-10.3); Magnesium 1.6 mg/dL (1.6-2.6); Phosphorous 4.7 mg/dL (2.7-4.5); Potassium 4.7 mEq/L (3.5-5.1)
[2022-02-16 07:34] VITALS: TEMP 98.7; O2SAT 97
[2022-02-16] MEDS: metroNIDAZOLE 500 MG TABLET PO SCH (08:36)
[2022-02-16] MEDS: Gabapentin 300 MG CAPSULE PO SCH ×2 (08:36→16:28)
[2022-02-16] MEDS: Sennosides/Docusate Sodium TABLET PO SCH (08:36)
[2022-02-16] MEDS: QUEtiapine Fumarate 100 MG TABLET PO SCH (08:36)
[2022-02-16] MEDS: Clotrimazole 1% CRM 15 GM TUBE TP SCH (08:48)
[2022-02-16 17:20] VITALS: BP 155/64; PULSE 94
== END 2022-02-16 20:00 | DRG 710 ==
LOC: 2ANU 11:58 → EMEROOARM 11:58 → SUATTDRO 16:39 → 2ANU 16:57 → SUATTDRO 02-02 13:07 → 2NNU 02-09 17:58
PROVIDERS: ADMIT Internal Medicine; ATTEND Internal Medicine